=== PATIENT | female | born 1940 | race Two or more races ===

== ENCOUNTER 2020-11-09 07:38 | Day surgery (SDC) | payer OTHER ==
[~2020-11-09] VITALS: Ht 152.4 cm; Wt 60.9 kg
[~2020-11-09 07:38] MED LIST: ALBU90OI6 INH; ALBU90OI61 INH; AMLO10 PO; Accuneb0.63 MG/3 INH; BECL40OI INH; BONE ESSENT166.75 MG PO; CLOB.05TO TOP; FLUSAL2505 IH; FLUT1DIS5 INH; Mupirocin22 GM; TIOT18 INH; VARE1 PO
[2020-11-09] MEDS ORDERED: OTEZLA30 MG PO (08:49)
[2020-11-09] MEDS ORDERED: Triamcinolone A15 GM (08:51)
--- NOTE | 2020-11-09 11:31 | NUR ---
PATIENT RETURNED TO THE RECOVERY ROOM FROM THE [facility]. BILATERAL GROIN DRESSINGS/ANGIOSEAL. PULSES +1 BILATERALLY PT/DP PATIENT PLACED ON THE MONITOR, CALL LIGHT IN REACH. NO PAIN NOTED. HOB UP 10 DEGREES. SIDE RAILS UP X TWO.
[2020-11-09] MEDS ORDERED: CLOP75 PO (11:38)
--- NOTE | 2020-11-09 11:51 | NUR ---
TRAY SERVED AND SET UP FOR PATIENT TO SELF FEED. CONTINUE TO MONITOR GROIN SITES. NO PAIN NOTED. NO BLEEDING NOTED.
--- NOTE | 2020-11-09 11:53 | NUR ---
DR. LEIJA WAS AT THE BEDSIDE ON ARRIVAL BACK TO THE RECOVERY ROOM AND SPOKE TO THE PATIENT ABOUT EVENTS OF THE PROCEDURE. TWO STENTS PLACED AND HIS EXPECTATION FOR HER RECOVERY. ALL QUESTIONS ANSWERED.
--- NOTE | 2020-11-09 13:55 | NUR ---
PATIENT UP WITH ASISTANCE TO THE RESTROOM. VOIDED. NO PAIN NOTED. BILATERAL GROIN SITE CHECKED AND UNCHANGED. PATIENT AMBULATED BACK TO THE BEDSIDE AND CALLED SON, UPDATED AND HE WILL PICK HER PRISCRIPTION UP AND THEN COME HERE TO PICK HER UP AT 1430.
--- NOTE | 2020-11-09 14:07 | NUR ---
PATIENT UP AND DRESSED AND ALL BELONGINGS GATHERED AND GROIN SITES CHECKED, UNCHNAGED. NO PAIN. PIV CATHETER REMOVED AND CATHETER TIP INTACT. PRESSURE DRESSING APPLIED TO THE RIGHT AC. REVIEWED ALL DISCHARGE INSTRUCTIONS AND COPIES GIVEN.
--- NOTE | 2020-11-09 14:24 | NUR ---
DISCHARGED HOME VIA WHEELCHAIR. BELONGINS WITH PATIENT.
--- NOTE | 2020-11-09 14:35 | NUR ---
PATEINT DISCHARGED HOME VIA WHEELCHAIR TO THE CLIO ENTRANCE AND MET RIDE. PATIENT STABLE UPON DISCHARGE.
== END 2020-11-09 14:30 | disposition home or self-care (01) ==
LOC: MHTC 07:38
DX: I70.211 Atherosclerosis of native arteries of extremities with intermittent claudication, right leg (principal); I70.8 Atherosclerosis of other arteries; I10 Essential (primary) hypertension; J44.9 Chronic obstructive pulmonary disease, unspecified; F17.210 Nicotine dependence, cigarettes, uncomplicated; G47.33 Obstructive sleep apnea (adult) (pediatric); L40.50 Arthropathic psoriasis, unspecified; M81.0 Age-related osteoporosis without current pathological fracture; Z20.828 Contact with and (suspected) exposure to other viral communicable diseases; Z79.899 Other long term (current) drug therapy
CPT/HCPCS: 76937; 99152; 99153; A9270-GY; C1725; C1760; C1769; C1874; C1876; C1887; C1894; J1644; J2250; J3010; J7030; J7050; Q9967

== ENCOUNTER → 2022-03-29 | Outpatient (CLI) | payer OTHER ==
[~2022-03-29] MED LIST changes: +CLOP75 PO; +OTEZLA30 MG PO; +Triamcinolone A15 GM
[2022-03-29 08:02] LABS: BASOPHILS ABSOLUTE AUTO 0.04 K/mm3 (0.00-0.23); BASOPHILS PERCENT AUTO 1 % (0-2); EOSINOPHILS ABSOLUTE AUTO 0.32 K/mm3 (0.00-0.68); EOSINOPHILS PERCENT AUTO 5 % (0-6); Hematocrit 42.6 % (33.0-51.0); IMMATURE GRAN ABSOLUTE AUTO 0.02 K/mm3 (0.00-0.10); IMMATURE GRAN PERCENT AUTO 0 % (0-1); LYMPHOCYTES ABSOLUTE AUTO 1.24 K/mm3 (0.84-5.20); LYMPHOCYTES PERCENT AUTO 18 % (21-46); MONOCYTES ABSOLUTE AUTO 0.54 K/mm3 (0.16-1.47); MONOCYTES PERCENT AUTO 8 % (4-13); Mean Corpuscular HGB 29.1 pg (26.0-34.0); Mean Corpuscular HGB Conc 32.9 g/dL (31.5-36.5); Mean Corpuscular Volume 89 fL (80-100); Mean Platelet Volume 10.4 fL (9.1-12.4); NEUTROPHILS ABSOLUTE AUTO 4.86 K/mm3 (1.96-9.15); NEUTROPHILS PERCENT AUTO 69 % (41-73); Platelet Count 226 K/mm3 (150-400); RDW Coefficient Variation 16.7 % (11.7-14.2); RDW Standard Deviation 54.1 fL (35.1-46.3); Red Blood Cell Count 4.81 M/mm3 (3.80-5.20); White Blood Cell Count 7.02 K/mm3 (4.00-11.30)
[2022-03-29 08:12] LABS: Albumin, Blood 3.7 g/dL (3.4-5.0); Bilirubin, Total 0.7 mg/dL (0.1-1.0); Bun/Creatinine Ratio 14.7 (12.0-20.0); Calcium, Blood 8.6 mg/dL (8.5-10.1); Creatinine, Blood 0.75 mg/dL (0.40-1.00); Globulin, Blood 3.8 g/dL (2.2-4.0); Total Protein, Blood 7.5 g/dL (6.4-8.2)
== END ==
LOC: LAB SHORT 07:55
PROVIDERS: General Practice
DX: R06.00 Dyspnea, unspecified (principal)
CPT/HCPCS: 80053; 83880; 84484; 85025

== ENCOUNTER 2023-01-23 12:43 | Inpatient (IN) | payer OTHER ==
[~2023-01-23] VITALS: Ht 152.4 cm; Wt 59.8 kg
[2023-01-23] MEDS ORDERED: Aspir 8181 MG PO (13:11)
[2023-01-23 13:51] LABS: BASOPHILS ABSOLUTE AUTO 0.04 K/mm3 (0.00-0.23); BASOPHILS PERCENT AUTO 1 % (0-2); EOSINOPHILS ABSOLUTE AUTO 0.02 K/mm3 (0.00-0.68); EOSINOPHILS PERCENT AUTO 0 % (0-6); Hematocrit 46.7 % (33.0-51.0); Hemoglobin 14.8 g/dL (11.5-16.0); IMMATURE GRAN ABSOLUTE AUTO 0.12 K/mm3 (0.00-0.10); IMMATURE GRAN PERCENT AUTO 2 % (0-1); LYMPHOCYTES PERCENT AUTO 7 % (21-46); MONOCYTES PERCENT AUTO 7 % (4-13); Mean Corpuscular HGB 28.1 pg (26.0-34.0); Mean Corpuscular HGB Conc 31.7 g/dL (31.5-36.5); Mean Corpuscular Volume 89 fL (80-100); Mean Platelet Volume 10.3 fL (9.1-12.4); NEUTROPHILS PERCENT AUTO 83 % (41-73); NRBC ABSOLUTE 0.02 K/mm3 (0.00-0.02); NRBC Auto 0.2 /100 WBC (0.0-0.2); Platelet Count 282 K/mm3 (150-400); RDW Coefficient Variation 15.5 % (11.7-14.2); RDW Standard Deviation 51.3 fL (35.1-46.3); Red Blood Cell Count 5.26 M/mm3 (3.80-5.20); White Blood Cell Count 8.18 K/mm3 (4.00-11.30)
[2023-01-23 13:52] LABS: Base Excess Venous 8.6 mmol/L; Bicarbonate Venous 29.5 mmol/L (24.0-30.0); PCO2 Venous 55.3 mmHg (38-42); pH Blood Venous 7.39 (7.34-7.37)
[2023-01-23 14:38] LABS: Albumin, Blood 3.2 g/dL (3.4-5.0); Albumin/Globulin Ratio 0.7 (0.8-1.8); Bilirubin, Total 0.8 mg/dL (0.1-1.0); Bun/Creatinine Ratio 20.3 (12.0-20.0); Creatinine, Blood 0.64 mg/dL (0.40-1.00); Globulin, Blood 4.8 g/dL (2.2-4.0); Potassium, Blood 3.8 mmol/L (3.5-5.5)
--- NOTE | 2023-01-23 18:21 | NUR ---
PT ARRIVED TO THE MEDICAL FLOOR FROM THE ER. PT WAS UP WITH ASSIST TO THE BED, THE PT BECAME VERY SOB WITH MINIMAL ACTIVITY. PT ORIENTED TO THE ROOM LAYOUT AND CALL SYSTEM. CALL LIGHT IN REACH
[2023-01-24 05:37] LABS: BASOPHILS ABSOLUTE AUTO 0.02 K/mm3 (0.00-0.23); BASOPHILS PERCENT AUTO 0 % (0-2); EOSINOPHILS PERCENT AUTO 0 % (0-6); Hematocrit 38.6 % (33.0-51.0); Hemoglobin 12.4 g/dL (11.5-16.0); IMMATURE GRAN ABSOLUTE AUTO 0.08 K/mm3 (0.00-0.10); IMMATURE GRAN PERCENT AUTO 1 % (0-1); LYMPHOCYTES ABSOLUTE AUTO 0.26 K/mm3 (0.84-5.20); LYMPHOCYTES PERCENT AUTO 4 % (21-46); MONOCYTES ABSOLUTE AUTO 0.09 K/mm3 (0.16-1.47); MONOCYTES PERCENT AUTO 1 % (4-13); Mean Corpuscular HGB 28.7 pg (26.0-34.0); Mean Corpuscular HGB Conc 32.1 g/dL (31.5-36.5); Mean Corpuscular Volume 89 fL (80-100); Mean Platelet Volume 10.7 fL (9.1-12.4); NEUTROPHILS ABSOLUTE AUTO 6.63 K/mm3 (1.96-9.15); NEUTROPHILS PERCENT AUTO 94 % (41-73); Platelet Count 257 K/mm3 (150-400); RDW Coefficient Variation 15.8 % (11.7-14.2); Red Blood Cell Count 4.32 M/mm3 (3.80-5.20); White Blood Cell Count 7.08 K/mm3 (4.00-11.30)
[2023-01-24 06:13] LABS: Albumin, Blood 2.6 g/dL (3.4-5.0); Albumin/Globulin Ratio 0.6 (0.8-1.8); Bilirubin, Total 0.5 mg/dL (0.1-1.0); Bun/Creatinine Ratio 32.9 (12.0-20.0); Calcium, Blood 7.9 mg/dL (8.5-10.1); Creatinine, Blood 0.7 mg/dL (0.40-1.00); Globulin, Blood 4.1 g/dL (2.2-4.0); Potassium, Blood 4.3 mmol/L (3.5-5.5); Total Protein, Blood 6.7 g/dL (6.4-8.2)
--- NOTE | 2023-01-24 06:34 | NUR ---
SHIFT SUMMERY. PT VERY SOB, RT CALLED FOR PRN TX. PT STOOD AT BEDSIDE AND TRANSFRED TO BSC. PT SEEMS TO BE A LITTLE LESS SOB. RESTING IN BED, PTS COLOR SEEMS BETER THAN LAST NIGH. PT HAS FLACKY SKIN TO FEET FROM SKIN DX. PT A&O X 4 CALLED FOR ASSISTANCE. CALL LIGHT IN REACH.
--- NOTE | 2023-01-24 18:42 | NUR ---
PT IS A/OX4, PLEASANT AND COOPERATIVE. THE PT IS UP WITH MINIMAL ASSIST. THE PT HAS BEEN GETTING UP IND TO THE BSC TODAY. PT CONTINUES TO BE VERY SOB WITH MINIMAL ACTIVITY. PT IS ON O2 @ 3L/MIN. PT HAS LOOSE COUGH BUT IT IS NONPRODUCTIVE SO FAR PER THE PT. PT IS ENCOURAGED TO USE HER INSENTIVE SPITOMETER. CALL LIGHT IN REACH. WILL CONTINUE TO MONITOR AND ASSESS FOR CHANGES
[2023-01-25 06:29] LABS: BASOPHILS ABSOLUTE AUTO 0.02 K/mm3 (0.00-0.23); BASOPHILS PERCENT AUTO 0 % (0-2); EOSINOPHILS PERCENT AUTO 0 % (0-6); Hemoglobin 12.5 g/dL (11.5-16.0); IMMATURE GRAN ABSOLUTE AUTO 0.18 K/mm3 (0.00-0.10); IMMATURE GRAN PERCENT AUTO 2 % (0-1); LYMPHOCYTES ABSOLUTE AUTO 0.51 K/mm3 (0.84-5.20); LYMPHOCYTES PERCENT AUTO 4 % (21-46); MONOCYTES ABSOLUTE AUTO 0.33 K/mm3 (0.16-1.47); MONOCYTES PERCENT AUTO 3 % (4-13); Mean Corpuscular HGB 28.7 pg (26.0-34.0); Mean Corpuscular HGB Conc 32.1 g/dL (31.5-36.5); Mean Corpuscular Volume 90 fL (80-100); Mean Platelet Volume 10.5 fL (9.1-12.4); NEUTROPHILS PERCENT AUTO 92 % (41-73); Platelet Count 246 K/mm3 (150-400); RDW Coefficient Variation 15.7 % (11.7-14.2); RDW Standard Deviation 51.7 fL (35.1-46.3); Red Blood Cell Count 4.35 M/mm3 (3.80-5.20); White Blood Cell Count 12.34 K/mm3 (4.00-11.30)
--- NOTE | 2023-01-25 06:35 | NUR ---
SHIFT SUMMERY. PT SEEMED TO REST FAILY WELL AWOKE 1-2 TIMES TO VOID. PT HAS MOIST COUGH BUT NOT ABLE TO EXSPELL ANY MUCUS. PT STATED SHE FELT A LITTLE BETTER THAN YESTEDAY. CALL LIGHT IN REACH.
[2023-01-25 07:03] LABS: Bun/Creatinine Ratio 36.6 (12.0-20.0); Creatinine, Blood 0.63 mg/dL (0.40-1.00); Potassium, Blood 4.8 mmol/L (3.5-5.5)
--- NOTE | 2023-01-25 09:10 | NUR ---
PT COUGHING MOSTLY NONSTOP THIS AM. CALLED DR GARCIA. HE TO ORDER COUGH MEDS.
--- NOTE | 2023-01-25 12:48 | NUR ---
PT C/O TOBACCO W/D. STATES 1 PACK PER DAY. SPOKE TO DR GARCIA. OKAY 10 MCG PATCH DAILY START NOW
--- NOTE | 2023-01-25 18:42 | NUR ---
PT PLEASANT TODAY. CONTINUES TO BE SOB WITH ANY EXERTION TODAY. DID AMBULATE TO BSC TODAY. OBTAINED COUGH MED FOR CONSTANT COUGH THIS AM. THIS HELPED GREATLY. GAVE AGAIN THIS BIRGIT. BREATHING TX HELPED WHEEZINESS TODAY. DR INCREASED THE SOLU-MEDROL DOSING. OBTAINED NEW ORDERS FOR NICOTINE PATCH. VSS. NO OTHER NEW CONCERNS NOTED. BED IN LOW POSITION, CALL LITE IN REACH, CALLS APPROP
--- NOTE | 2023-01-26 02:36 | NUR ---
SHIFT SUMMERY, PT RESTING IN BED, PT HAS A MOIST COUGH THAT IS NOT PRODUCTIVE. PT GIVEN TESLAN PEARLS. PT CONTINUES TO BE SOB WITH ACTIVITY. CALL LIGHT IN REACH.
[2023-01-26 06:07] LABS: BASOPHILS ABSOLUTE AUTO 0.02 K/mm3 (0.00-0.23); BASOPHILS PERCENT AUTO 0 % (0-2); EOSINOPHILS PERCENT AUTO 0 % (0-6); Hematocrit 39.8 % (33.0-51.0); Hemoglobin 12.8 g/dL (11.5-16.0); IMMATURE GRAN ABSOLUTE AUTO 0.28 K/mm3 (0.00-0.10); IMMATURE GRAN PERCENT AUTO 2 % (0-1); LYMPHOCYTES ABSOLUTE AUTO 0.33 K/mm3 (0.84-5.20); LYMPHOCYTES PERCENT AUTO 3 % (21-46); MONOCYTES ABSOLUTE AUTO 0.11 K/mm3 (0.16-1.47); MONOCYTES PERCENT AUTO 1 % (4-13); Mean Corpuscular HGB 28.9 pg (26.0-34.0); Mean Corpuscular HGB Conc 32.2 g/dL (31.5-36.5); Mean Corpuscular Volume 90 fL (80-100); Mean Platelet Volume 10.6 fL (9.1-12.4); NEUTROPHILS ABSOLUTE AUTO 12.26 K/mm3 (1.96-9.15); NEUTROPHILS PERCENT AUTO 94 % (41-73); Platelet Count 254 K/mm3 (150-400); RDW Coefficient Variation 15.5 % (11.7-14.2); RDW Standard Deviation 51.5 fL (35.1-46.3); Red Blood Cell Count 4.43 M/mm3 (3.80-5.20)
[2023-01-26 06:37] LABS: Alanine Aminotransfer (ALT/SGP 28 U/L (12-78); Albumin, Blood 2.7 g/dL (3.4-5.0); Albumin/Globulin Ratio 0.7 (0.8-1.8); Alk Phos 72 U/L (50-136); Anion Gap Unable to Calculate mmol/L (6-16); Aspartate Aminotrans (AST/SGOT 12 U/L (12-37); Bilirubin, Total 0.3 mg/dL (0.1-1.0); Blood Urea Nitrogen 25 mg/dL (8-24); Bun/Creatinine Ratio 37.7 (12.0-20.0); CO2, Blood 35 mmol/L (21-32); Calcium, Blood 8.2 mg/dL (8.5-10.1); Chloride, Blood 106 mmol/L (98-108); Creatinine, Blood 0.66 mg/dL (0.40-1.00); Globulin, Blood 3.9 g/dL (2.2-4.0); Glomerular Filtration Rate 86 (60-); Glucose, Blood 336 mg/dL (70-99); Potassium, Blood 4.8 mmol/L (3.5-5.5); Sodium, Blood 140 mmol/L (136-145); Total Protein, Blood 6.6 g/dL (6.4-8.2)
--- NOTE | 2023-01-26 16:57 | NUR ---
PATIENT CONTINUES WITH BREATHING DIFFICULTY INTERMITTENT THROUGH DAY, GETS BETTER FOR A TIME WITH BREATHING TREATMENTS AND SOLUMEDROL PER JAN. PATIENT WITH HIGHER BP TODAY 150S-160S, DR GARCIA NOTIFIED, STATES HE WILL INCREASE HER SOLUMEDRO. WILL CONTINUE TO MONITOR AND TREAT PER EMAR. BED IN LOW POSITION, CALL LIGHT IN REACH. PATIENT DOES NOT CALL OFTEN, NEEDS CHECK INS.
--- NOTE | 2023-01-26 17:34 | NUR ---
PATIENT BG 419 AT 1714, TEMP 99.1, CALL PLACED TO DR GARCIA, V/O RECIEVED CONTINUE WITH INSULIN 5U AND RECHECK BG IN 2 HOURS. D/C ROCEPHIN AND START CEFIPIME 2G IV Q 8 HOURS. IF TEMP ABOVE 100.4, ORDER BLOOD CULTURES AND CALL DOCTOR.
--- NOTE | 2023-01-27 03:40 | NUR ---
SHIFT SUMMERY, PT RESTING IN BED. PT BG 388 MD NOTIFIED AND 4 UNITS ON S/S WERE GIVEN, PT UP TO BSC SEVERAL TIMES THIS SHIFT. SLEEPING INTERMITANTLY. AND HAVING OCCASIONAL COUGHING. CALL LIGHT IN REACH. NO C/O PAIN.
--- NOTE | 2023-01-27 12:25 | NUR ---
BG 423, CALL TO DR CURIEL AT 1220, ORDERS TO GIVE 5 UNITS HUMALOG AND RECHECK BG IN 2 HOURS, CALL BACK WITH RESULT.
--- NOTE | 2023-01-27 15:42 | NUR ---
1345 BG 449, CALL TO DR CURIEL, LEATHA MORRISON ANSWERED CALL AND NOTIFIED OF BLOOD SUGAR. RETURN CALL FROM DR CURIEL AT 1405 TO CHANGE HUMALOG SLIDING SCALE TO MEDIUM AC, HS AND ALSO GIVE 3 UNITS OF HUMALOG AC, ALSO RECHECK BLOOD SUGAR NOW AND GIVE MEDIUM SLIDING SCALE. ORDER CHANGED BY CORE OVEN TENDER PER DR REQUEST AND BLOOD SUGAR RECHECKED AT 1532 ABOVE 500, LAB CALLED FOR GLUCOSE CHECK AND 10 UNITS GIVEN OF HUMALOG. AWAITING LAB RESULTS TO CONTACT DR CURIEL.
--- NOTE | 2023-01-27 16:06 | NUR ---
DR CURIEL AWARE BG ABOVE 500, PATIENT ALERT AND ORIENTED TALKING AND WAS GIVEN 10 UNITS HUMALOG. ORDER TO RECHECK BG IN 2 HOURS OR BEFORE DINNER.
[2023-01-27 16:50] LABS: Glucose, Blood 579 mg/dL (70-99)
--- NOTE | 2023-01-27 17:04 | NUR ---
PATIENT HAS HAD DECREASED ISSUE WITH WOB TODAY, DR DECREASED HER SOLUMEDROL TO BID, PATIENT DENIES ANY INCREASE IN SOB THROUGHOUT DAY. BG HAVE INCREASED SIGNIFICANTLY, DR AWARE AND INCREASED HUMALOG TO 3 UNITS AC AND ADDITIONALLY MEDIUM SS AC/HS. PATIENT ALERT AND ORIENTED ALL THROUGHOUT DAY. BED IN LOW POSITION, CALL LIGHT IN REACH.
--- NOTE | 2023-01-27 17:10 | NUR ---
THIS ADVERTISING CONSULTANT HAS REVIEWED AND AGREES WITH ALL NOTES AND ASSESSMENTS BY GIGI MARIANN.
--- NOTE | 2023-01-27 18:02 | NUR ---
DR CURIEL NOTIFIED OF DINNER BG 435 AND 13 UNITS HUMALOG GIVEN. RN TO RECHECK AT HS AND CONTACT PHYSICIAN DIRECTED ON SLIDING SCALE.
[2023-01-28 05:08] LABS: BASOPHILS ABSOLUTE AUTO 0.03 K/mm3 (0.00-0.23); BASOPHILS PERCENT AUTO 0 % (0-2); EOSINOPHILS PERCENT AUTO 0 % (0-6); Hematocrit 38.7 % (33.0-51.0); Hemoglobin 12.6 g/dL (11.5-16.0); IMMATURE GRAN ABSOLUTE AUTO 0.33 K/mm3 (0.00-0.10); IMMATURE GRAN PERCENT AUTO 3 % (0-1); LYMPHOCYTES ABSOLUTE AUTO 0.74 K/mm3 (0.84-5.20); LYMPHOCYTES PERCENT AUTO 6 % (21-46); MONOCYTES ABSOLUTE AUTO 0.71 K/mm3 (0.16-1.47); MONOCYTES PERCENT AUTO 5 % (4-13); Mean Corpuscular HGB 28.4 pg (26.0-34.0); Mean Corpuscular HGB Conc 32.6 g/dL (31.5-36.5); Mean Corpuscular Volume 87 fL (80-100); NEUTROPHILS ABSOLUTE AUTO 11.51 K/mm3 (1.96-9.15); NEUTROPHILS PERCENT AUTO 86 % (41-73); Platelet Count 194 K/mm3 (150-400); RDW Coefficient Variation 15.4 % (11.7-14.2); RDW Standard Deviation 49.1 fL (35.1-46.3); Red Blood Cell Count 4.44 M/mm3 (3.80-5.20); White Blood Cell Count 13.32 K/mm3 (4.00-11.30)
--- NOTE | 2023-01-28 05:16 | NUR ---
MANAGER AGRICULTURAL SUMMARY VSS. ALERT TO QUESTIONS ASKED. O2 AT 3L/MIN NC. LUNGS DIMINISHED TO AUSCULTATION. ELEVATED CBG - WAS 415 AT HS, NOTIFIED AND ORDERED 10 U GLARGINE. HAS BEEN RESTING QUIETLY WITH FEW INTERRUPTIONS SINCE. CALL LIGHT IN REACH. RAILS UP X 3. WILL CONTINUE TO MONITOR
[2023-01-28 05:24] LABS: Magnesium, Blood 2.5 mg/dL (1.6-2.4)
[2023-01-28 05:29] LABS: Albumin, Blood 2.5 g/dL (3.4-5.0); Anion Gap Unable to Calculate mmol/L (6-16); Blood Urea Nitrogen 24 mg/dL (8-24); Bun/Creatinine Ratio 36.4 (12.0-20.0); CO2, Blood 35 mmol/L (21-32); Calcium, Blood 8.5 mg/dL (8.5-10.1); Chloride, Blood 106 mmol/L (98-108); Creatinine, Blood 0.66 mg/dL (0.40-1.00); Glomerular Filtration Rate 86 (60-); Glucose, Blood 246 mg/dL (70-99); Potassium, Blood 4.5 mmol/L (3.5-5.5); Sodium, Blood 140 mmol/L (136-145)
--- NOTE | 2023-01-28 16:46 | NUR ---
PATIENT A/OX4, U WITH FWW AND SBA TO BSC. VSS, ON 3LO2 TO MAINTAIN SATS. GLUCOSE LEVELS IMPROVED THIS SHIFT. PATIENT TOLERATING ADA DIET. LUNGS COARSE, PATIENT DENIES COUGHING UP ANY SPUTUM. RECEIVING ABX AND STEROIODS. PLEASANT AND COOPERATIVE WITH CARE. SKIN FAGILE, BUT INTACT.
--- NOTE | 2023-01-29 16:01 | NUR ---
SHIFT SUMMARY PT A&OX4 AND PLEASANT. PLAN IS FOR PT TO DISCHARGE HOME ON INSULIN. THIS NURSE HAS BEEN EDUCATING PT ON HOW TO SELF ADMINISTER INSLIN. NO C/O PAIN. PT WORKED WITH PHYSICAL THERAPY TODAY AND TOLERATED WELL. PT ABLE TO AMBULATE TO BATHROOM WITH STANDBY ASSIST. VSS. NO ACUTE CHANGES. CALLS APPROPRIATELY. BED IN LOWEST POSITION AND CALL LIGHT IN REACH.
--- NOTE | 2023-01-30 04:00 | NUR ---
SHIFT MOSTLY UNREMARKABLE. 2100 MEDICATIONS ADMINISTERED WITHOUT DIFFICULTY. HS CBG CHECK WAS 411 MG/DL. ADMINISTERED HUMALOG PER HS SLIDING SCALE. NOTIFIED HOSPITALIST. HOSPITALIST INCREASED 0900 INSULIN LANTUS DOSE FROM 15 UNITS TO COMBAT HYPERGLYCEMIA. PT MADE AWARE. SHIFT OTHERWISE UNREMARKABLE. AOX4, PLEASANT, COOPERATIVE WITH CARE, CALLS APPROPRIATELY. CALL LIGHT LEFT WITHIN REACH.
[2023-01-30] MEDS ORDERED: Ventolin/Prove6.7 GM INH (11:55)
[2023-01-30] MEDS ORDERED: GUAI600T33 PO (11:57)
[2023-01-30] MEDS ORDERED: BASAGLAR K100 UNIT/1 SC (12:02)
[2023-01-30] MEDS ORDERED: HUMALOG KW100 UNIT/1 SC (12:08)
[2023-01-30] MEDS ORDERED: NICO21TP TOP (12:09)
[2023-01-30] MEDS ORDERED: Prednisone10 MG PO (12:13)
--- NOTE | 2023-01-30 12:58 | NUR ---
SLIDING SCALE EDU. PT PROVIDED A MEDIUM SLIDING SCALE. SHE WAS ABLE TO SAFELY GIVE HERSELF 4 UNITS. STILL NEEDED CUEING TO PRIME NEEDLE. SHE IS HAVING DIFFICULTY TAKINGTHE CAP OFF THE PEN. CONTINUE POC.
--- NOTE | 2023-01-30 17:04 | NUR ---
GLUCOMETER FAMILY WENT AND BROUGHT BACK A GLUCOMETER FROM [facility]. PT IS HAVING DIFFICULTY MADLING THE TINY STRIPS AND THE TINY LANCETS. SHE WAS SUCCESSFUL AT POKING HERSELF. HER NEW METER REGISTERED A CBG OF 354. THE HOUSE METER MEASURED HER AT 276. CALLED DR JOSE. DECIDED TO DELAY DISCHARGE TO MORNING TO ALLOW MORE TIME TO TEACH PT. CONTINUE POC.
--- NOTE | 2023-01-31 07:09 | NUR ---
SHIFT SUMMARY PATIENT ALERT AND ORIENTED. HAD NO COMPLAINTS OF PAIN OR SHORTNESS OF BREATH. VITAL SIGNS STABLE. PATIENT CONTINUES ON 2 LITERS O2 VIA NASAL CANULA. NO ACUTE ISSUES NOTED OVERNIGHT. CALL LIGHT WITHIN REACH.
--- NOTE | 2023-01-31 12:07 | NUR ---
RN NOTE MS MCCABE IS A&OX4. SHE AMBULATED IN THE HALLWAYS TODAY ON 2L N/C, DID GET SOME SOB, BUT KEPT SATS AROUND 90-92% WHEN WALKING. NO WALKER, STAND-BY ASSIST AND INDEPENDENT. I EDUCATED HER THIS AM ON TYPES OF INSULIN. SHE GAVE HER OWN GLARGINE INSULIN FROM THE PEN THIS MORNING. SHE WAS REMINDED ON WHICH IS SHORT TERM AND WHICH IS [facility] INSULIN SHE WASN'T ABLE TO TELL ME THE DIFFERENCE. SHE TESTED HER BLOOD SUGAR USING THE HOME DEVISE BEFORE LUNCH. [facility] MACHINE WAS 233. HOME MACHINE 269. DR CURIEL AWARE OF DIFFERENCE IN MACHINES. PT CHANGED TO LOW SLIDING SCALE BY DR CURIEL AND GLARGINE REDUCED TO 10 UNITS THIS MORNING BY DR CURIEL. PT GIVEN PAPERWORK ON LOW SLIDING SCALE AND ABLE TO CORRECTLY TELL ME WHAT DOSE SHE WOULD TAKE AT HOME. REIMBURSEMENT CONSULTANT CAME TO EDUCATE HER THIS AM. SHE HAS CALLED HER NEIGHBOR AND IS ABLE TO GET A RIDE HOME THIS AFTERNOON.
--- NOTE | 2023-01-31 15:46 | NUR ---
RN NOTE. PT VERBALISED UNDERSTANDING OF WRITTEN AND VERBAL DISCHARGE INSTRUCTIONS. AWAITING NEIGHBORS WHO ARE GIVING HER A RIDE HOME.
--- NOTE | 2023-01-31 16:16 | NUR ---
DC NOTE DISCHARGED HOME AT 1618HRS VIA W/C ON OXYGEN.
== END 2023-01-31 16:15 | disposition home health service (06) | DRG 189 ==
LOC: ER 12:43 → MEDS 12:44
PROVIDERS: Emergency Medicine; Family Medicine; Student in an Organized Health Care Education/Training Program; ADMIT Internal Medicine
DX: J96.21 Acute and chronic respiratory failure with hypoxia (principal); J43.9 Emphysema, unspecified; I25.10 Atherosclerotic heart disease of native coronary artery without angina pectoris; G47.33 Obstructive sleep apnea (adult) (pediatric); I73.9 Peripheral vascular disease, unspecified; L40.50 Arthropathic psoriasis, unspecified; J84.10 Pulmonary fibrosis, unspecified; I70.0 Atherosclerosis of aorta; J40 Bronchitis, not specified as acute or chronic; R73.9 Hyperglycemia, unspecified; R73.03 Prediabetes; I10 Essential (primary) hypertension; M81.0 Age-related osteoporosis without current pathological fracture; M19.90 Unspecified osteoarthritis, unspecified site; B35.1 Tinea unguium; B35.3 Tinea pedis; T38.0X5A Adverse effect of glucocorticoids and synthetic analogues, initial encounter; Z90.710 Acquired absence of both cervix and uterus; Z90.722 Acquired absence of ovaries, bilateral; Z98.890 Other specified postprocedural states; Z99.81 Dependence on supplemental oxygen; Z85.41 Personal history of malignant neoplasm of cervix uteri; Z79.899 Other long term (current) drug therapy; Z79.51 Long term (current) use of inhaled steroids; Z79.82 Long term (current) use of aspirin; Z87.891 Personal history of nicotine dependence; Z71.6 Tobacco abuse counseling
CPT/HCPCS: 36415; 71046; 80048; 80053; 80069; 82803; 82947; 83735; 84145; 85025; 87070; 87205; 93005; 93010; 94640; 94644; 94645; 94664; 94760; 94761; 96372; 96374; 96375; 96376; 97110; 97116; 97162; 97165; 97530; 99285-25; A9270; G0378; J0692; J0696; J1650; J1815; J2930; J7030; J7512